=== PATIENT | female | born 2005 | race Hispanic/Latino ===

== ENCOUNTER 2023-03-18 14:35 | Emergency (ER) | payer SELFPAY | END 2023-03-18 16:43 | disposition home or self-care (01) | LOC: CSHERS 14:35 | DX: O23.12 Infections of bladder in pregnancy, second trimester (principal); N30.00 Acute cystitis without hematuria; Z3A.21 21 weeks gestation of pregnancy | CPT/HCPCS: 76815; 87077; 87086; 87186 ==